=== PATIENT | female | born 1985 | race Caucasian/White ===

== ENCOUNTER 2020-11-08 08:06 | Inpatient (IN) ==
[2020-11-08] MEDS ORDERED: PENICILLIN G POTASSIUM 3 MU in DEXTROSE 5% 100 ML IV PRN (11:00)
[2020-11-08] MEDS ORDERED: LACTATED RINGER'S 1,000 ML IV PRN (11:00)
[2020-11-08] MEDS ORDERED: PENICILLIN G POTASSIUM 6 MU in DEXTROSE 5% 250 ML IV ONE (11:15)
[2020-11-08 11:38] LABS: Mean Corpuscular Hgb Conc 34.5 g/dL (32-36)
[2020-11-08 11:54] LABS: Hematocrit (blood only) 38.5 % (37-47); Hemoglobin 13.3 g/dL (12.0-16.0); Mean Corpuscular Hemoglobin 31.6 pg (25-34); Mean Corpuscular Volume 91.4 fL (80-100); RDW Coefficient of Variation 13.3 % (11.5-14.5); RDW Standard Deviation 43.9 fL (36.4-46.3); Red Blood Count 4.21 M/uL (4.2-5.4); White Blood Count 10.22 K/uL (4.8-10.8)
[2020-11-08 11:59] LABS: Platelet Count 48 K/uL (130-400)
[2020-11-08] MEDS ORDERED: OXYTOCIN 30 UNITS/500 ML BAG IV PRN ×2 (12:45→19:44)
--- NOTE | 2020-11-08 13:24 | History & Physical Report ---
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 Fetus demonstrating category I tracing. 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 Intrapartum analgesia IV p.r.n. * Gestational thrombocytopenia noted. Now s/p IVIG x 2 last week at direction of hematology. Platelets at 48 upon this admission, c/w last few readings over past 1.5 months. Arrange platelets on-call p.r.n. Will monitor during admission given that patient is at higher bleeding risk. (2) Gestational diabetes mellitus (GDM) affecting : (3) Encounter for induction of labor: Admission and Anticipated Discharge Date Admission Date: November 08, 2020 History of Present Illness Primary Care Provider: [facility] Arti is a 35 y/o female currently at 39-2/7 WGA with an JONO 11/13/20 as determined by LMP who is here for IOL in setting of GDMA1. Her was complicated by gestational thrombocytopenia (followed by hematology), GDMA1, and GBS positive carrier status. Upon presentation, she denied contractions; endorsed good movement; denied fluid loss; and denied bloody show. Had regular appointments with OB, alongside Hematology (Dr. Serrano). She received 2x IVIG treatments at [facility] for management of her thrombocytopenia. Of note, she did experience this during a previous as well and was unresponsive to prednisone 100mg daily x 10 days. Labs: (Date 04/08/20) Blood type: AB+ Antibody screen: negative H.3 (today) Hct: 38.5 (today) WBC: 10.2 (today) Plt: 48 (today) -- of note, since end of 08/2020, has been ranging between 40-60 range Rubella: negative VDRL/RPR: negative Gonorrhea: negative Chlamydia: negative HIV: negative HbSAg: negative GBS: positive Other screens: cff-DNA / CF / SMA: Declined during course. Allergies Allergy/AdvReac Type Severity Reaction Status Date / Time No Known Allergies Allergy Verified 11/01/20 12:34 Home Medications Medication Instructions Recorded Confirmed Type prenat.vits,isac,tjk-qqed-lkony 1 tab PO DAILY 03/31/20 11/08/20 History acetone (urine) test #50 ea 09/06/20 11/08/20 Rx blood sugar diagnostic #150 ea 09/06/20 11/08/20 Rx blood-glucose meter #1 ea 09/06/20 11/08/20 Rx lancets 33 gauge #150 ea 09/06/20 11/08/20 Rx Patient History Medical History Chicken pox Gestational diabetes mellitus (GDM) affecting Gestational thrombocytopenia Surgical History History of knee surgery Social History Smoking Status: Never smoker Hx Alcohol Use: No Hx Substance Use: No Preferred Language: Chilean Communication Ability: Effective Demolitionist Required: No Beliefs That Will Affect Care: None marital status: marital status details: Carroll (33) [phone] Current Living Situation: Spouse Current Living Situation Comment: Lives with spouse, daughter, no pets. current occupational status: unemployed current occupation: Homemmaker. Other Information That Helps Us Care for You: No Feels Safe at Home: Yes Safety Concerns: Feels Safe At This Time Assistive Devices: Contacts and Glasses Review of Systems no fever, no chills and no sweats denies headache no dyspnea no chest pain, no dyspnea, no dyspnea at rest and no palpitations no dysuria no breast pain Physical Exam Physical Exam: General: Alert, oriented. No acute distress. Cardiac: Regular rate and rhythm, no murmurs/rubs/gallops. Respiratory: Clear to auscultation bilaterally a/p, no wheezes/rales/rhonchi. No increased work of breathing. Symmetrical chest rise. No respiratory distress. Pelvic: Dilation 3 cm; Effacement 50 ; Station -[address] Harper Lower Extremities: No lower extremity edema or swelling. No deep calf pain. Bryson's negative bilaterally Results & Data ([facility]) Vital Signs (Past 12 Hours) Vital Signs Temp Pulse Resp BP 11/08/20 13:01 74 118/75 11/08/20 11:07 36.7 C 93 H 18 125/85 11/08/20 10:59 93 H 125/85 Code Status & VTE Plan VTE Prophylaxis Plan VTE Prophylaxis will be ordered: No Monitoring External Monitor Baseline: 135 Variability: 6-25 / moderate Accelerations: 15x15 Decelerations: none Tocodynamometer Quality: mild irregular Frequency: q4-7m Resident Activity Tracking Resident Involvement: Resident Care Provided Care Provided: Adult Hospital Medicine and OB Delivery
--- NOTE | 2020-11-08 13:31 | Obstetrical Progress Note ---
Date of Service Reviewed things in depth and her plan for induction she is 39 weeks and we had discussed as a group inducing the patient approximately 39 weeks her cervix is c hecked and she is 3 cm and 50% a paced V head is palpated in vertex position. Her platelet count is 48 this morning it was 50+ yesterday it was 39 late last week she did receive IVIG and has had some improvement. Patient delivered well vaginally without problem with a low platelet count she feels that was likely in the 50:70 ratio during her previous delivery. I spoke with blood bank specifically [facility] he stated that this time that they did use the platelets but more were coming and I asked for an emergency call for platelets and he would contact the [place] he will let us know what is going on. It sounds like platelets will be available in a few hours regardless and I am anticipating not needing them this would be in the case of hemorrhage or section these issues were discussed with the patient November 08, 2020 Assessment & Plan Admission and Anticipated Discharge Date Admission Date: November 08, 2020 Results & Data ([facility]) Vital Signs (Past 12 Hours) Vital Signs Temp Pulse Resp BP 11/08/20 13:01 74 118/75 11/08/20 11:07 98.1 F 93 H 18 125/85 11/08/20 10:59 93 H 125/85 PG Care Time/CCT Total # of Minutes Spent Total Time Spent with Patient: Total time spent is greater than 50% in coordination of care (as documented) at patient's floor/unit and/or counseling patient: Coding Level of Care Code None
--- NOTE | 2020-11-08 17:16 | Labor Progress Brief Note ---
Date of Service November 08, 2020 Patient now 4 cm excepts artificial rupture of membrane this was performed and clear fluid Assessment & Plan Admission and Anticipated Discharge Date Admission Date: November 08, 2020 Results & Data ([facility]) Vital Signs (Past 12 Hours) Vital Signs Temp Pulse Resp BP 11/08/20 16:32 83 18 144/83 H 11/08/20 16:30 78 164/94 H 11/08/20 15:11 68 18 125/74 11/08/20 14:57 97.9 F 64 18 151/93 H 11/08/20 14:08 77 18 130/80 11/08/20 13:01 74 118/75 11/08/20 11:07 98.1 F 93 H 18 125/85 11/08/20 10:59 93 H 125/85 Coding Level of Care Code None
--- NOTE | 2020-11-08 19:21 | Delivery Summary ---
Vaginal Delivery Summary Date of Service November 08, 2020 Patient was induced at 39 weeks and 0 days. Was her second daily she is known to have low platelet count throughout the and whether this is gestational or immune related is uncertain Pitocin was started IV group B strep antibiotics were started patient cannot have an epidural with her platelet count of 48 artificial rupture membranes was performed at approximately 4:30 PM and then she at around 715% fully dilated pushed over 1 contraction occiput anterior position no nuchal cord no meconium gentle traction live vigorous female infant cord clamped after pulsations stopped at maternal request cord blood obtained. Placenta removed with gentle traction IV Pitocin started there was no tearing estimated blood loss 150 mL sponge and instrument counts correct Vaginal Delivery Summary [facility] Vaginal Delivery Charge Delivery Type Details:
[2020-11-08] MEDS ORDERED: bisacodyL 10 MG SUPP PR PRN (19:44)
[2020-11-08] MEDS ORDERED: HYDROCORTISONE ACETATE 25 MG SUPP PR PRN (19:44)
[2020-11-08] MEDS ORDERED: oxyCODONE/ACETAMINOPHEN 5mg/325mg TAB PO PRN (19:44)
[2020-11-08] MEDS ORDERED: SUPERCREAM 0.870% 15 GM JAR EXT PRN (19:44)
[2020-11-08] MEDS ORDERED: BENZOCAINE 20% AER SPR 82.5 GM CAN EXT PRN (19:44)
[2020-11-08] MEDS ORDERED: DIPHTHERIA/TETANUS/PERTUSSIS 0.5 ML SYR/VIAL IM ONE (19:44)
[2020-11-08] MEDS: IBUPROFEN 600 MG TAB PO PRN (20:12)
[2020-11-09] MEDS: ACETAMINOPHEN 325 MG TAB PO PRN ×3 (00:13→19:54)
[2020-11-09] MEDS: DOCUSATE SODIUM 100 MG CAP PO SCH ×3 (00:58→20:55)
--- NOTE | 2020-11-09 06:30 | Obstetrical Progress Note ---
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 - In setting of gestational thrombocytopenia -- EBL ~150cc. VSS overnight. Plt 27 this AM. Will consult hematology to aid with management - Dr. Serrano. Patient required IVIG after last delivery. No concern for hemorrhage at present. Will monitor. - Feels well today. Eating well, voiding well, ambulating well. - Pain well controlled with ibuprofen 600mg Q4H PRN. - Routine PPD care -- OOB, ambulation as tolerated - After discharge will have [address] Harper (2) Gestational diabetes mellitus (GDM) affecting : (3) Encounter for induction of labor: Subjective <Dallas Estrada MD - Last Filed: 11/09/20 07:36> Arti is a 35 y/o female who is now PPD #1 following IOL with subsequent at 39 weeks. Reports feeling well overall this morning. Endorses mild abdominal cramping and pain well managed on analgesics. Voiding without difficulty. Tolerating meals well and able to ambulate some. Endorses passing gas. Some persistent lochia with some improvement this morning. Breast feeding. Review of Systems Denies fever, chills, sweats Denies shortness of breath, difficulty breathing, chest pain, palpitations, chest pressure. Denies breast pain. Denies dysuria. Denies headache or changes in vision. Physical Exam <Dallas Estrada MD - Last Filed: 11/09/20 07:36> General: Alert, oriented. No acute distress. Cardiac: Regular rate and rhythm, no murmurs/rubs/gallops. Respiratory: Clear to auscultation bilaterally a/p, no wheezes/rales/rhonchi. No increased work of breathing. Symmetrical chest rise. No respiratory distress. Abdomen: Soft, nontender, nondistended. Bowel sounds present. Uterus: Uterine fundus firm, palpable 1-2 cm below umbilicus. Lower Extremities: No lower extremity edema or swelling. No deep calf pain. Bryson's negative bilaterally. Results & Data ([facility]) <Dallas Estrada MD - Last Filed: 11/09/20 07:36> Vital Signs (Past 12 Hours) Vital Signs Temp Pulse Pulse Resp BP BP Pulse Ox 11/09/20 03:30 36.6 C 56 L 16 112/71 97 11/08/20 23:15 36.5 C 69 17 113/65 96 11/08/20 21:30 37.0 C 76 18 118/77 11/08/20 21:24 36.6 C 73 18 133/70 11/08/20 21:12 72 134/76 11/08/20 20:55 74 18 151/82 H 11/08/20 20:35 73 142/87 H 11/08/20 20:20 77 18 141/90 H 11/08/20 20:05 66 16 138/87 11/08/20 19:50 68 18 146/84 H 11/08/20 19:35 70 18 138/104 H 11/08/20 19:21 71 179/87 H 11/08/20 19:20 36.5 C 72 18 182/89 H 11/08/20 18:43 60 150/86 H <Zoe Harper MD, FACOG - Last Filed: 11/09/20 07:37> Co-Signing Physician Notes Resident Physician Supervision Note: I was present with Dr. Estrada during the history and exam. I discussed the case with the resident and agree with the findings and plan as documented in the note. Any exceptions or clarifications are listed here: Heme consult for possible IVIG Documented By: Zoe Harper MD, FACOG Resident Activity Tracking <Dallas Estrada MD - Last Filed: 11/09/20 07:36> Resident Involvement: Resident Care Provided Care Provided: Adult Hospital Medicine and OB Delivery
[2020-11-09 07:11] LABS: Hematocrit (blood only) 36.1 % (37-47); Hemoglobin 12.3 g/dL (12.0-16.0); Mean Corpuscular Hemoglobin 30.8 pg (25-34); Mean Corpuscular Hgb Conc 34.1 g/dL (32-36); Mean Corpuscular Volume 90.5 fL (80-100); Platelet Count 27 K/uL (130-400); Platelet Estimate Decreased (Normal); RDW Standard Deviation 43.2 fL (36.4-46.3); Red Blood Count 3.99 M/uL (4.2-5.4); White Blood Count 12.57 K/uL (4.8-10.8)
[2020-11-09] MEDS: PRENATAL VITAMIN 1 TAB PO SCH (07:12)
[2020-11-09] MEDS: IBUPROFEN 600 MG TAB PO PRN ×2 (07:12→15:32)
--- NOTE | 2020-11-09 14:22 | Consultation Report ---
HEMATOLOGY CONSULTATION DATE OF CONSULTATION: 11/09/2020 REASON FOR CONSULT: Thrombocytopenia, gestational versus immune. HISTORY OF PRESENT ILLNESS: Arti is a pleasant 35-year-old female who was admitted on for induction. Her was complicated by gestational thrombocytopenia versus ITP, fol lowed by myself. Arti recently received 2 doses of IVIG leading up to induction therapy. Her plate let count had been steadily falling, 37,000 near the time of induction. Thus, the rationale to admin ister IVIG. She had undergone a prior with the same outcome and was successfully given JESSICA G. I was contacted today because her platelet count has fallen to 27,000. No external evidence of p rolonged bleeding, and thus, we will plan to hold off and continue monitoring her counts closely over the next 24 hours or so. PAST MEDICAL HISTORY: Significant for gestational diabetes mellitus and gestational thrombocytopenia . PAST SURGICAL HISTORY: Status post knee surgery. MEDICATIONS PRIOR TO ADMISSION: vitamins 1 tablet p.o. daily. ALLERGIES: No known drug allergies. SOCIAL HISTORY: The patient lives with her spouse. She is currently a homemaker. She is a nonsmoke r, nondrinker, nonillicit drug user. REVIEW OF SYSTEMS: All systems are negative unless otherwise outlined in the HPI. PHYSICAL EXAMINATION: Deferred as the patient was . LABORATORY DATA: WBC count 12,570, hemoglobin 12.3, platelet count 27,000. IMPRESSION: 1. Gestational versus immune thrombocytopenia. 2. Status post induction of vaginal delivery. PLAN: I have been asked to visit with Arti up on the OB [place]. She successfully delivered a healthy yesterday. I had been following Arti throughout her as her platelet count had dri fted slowly downward. About a week prior to scheduled induction day, her platelet count was about 37 ,000. I was not really enthusiastic to give IVIG; however, Dr. Lorenzo preferred to go ahead and proc eed with it. It did cause a slight bump in her platelets leading up to delivery around 48,000. Now post-delivery day #1, her platelet count has fallen to 27,000. That said, options moving forward are observation versus high-dose dexamethasone 40 mg p.o. daily for 4 days. The patient apparently had high-dose prednisone in the past, which was unsuccessful. Perhaps she could receive another dose of IVIG 1 gram/kg prior to discharge with close hematologic followup. Other alternative measures includ e oral thrombopoietin or perhaps rituximab. If her platelet count falls below 20,000, would consider intervention prior to discharge. We will ensure Arti has close hematologic followup upon discharge . Nothing further to add at this time. Thank you very much for allowing me to participate in her care. Job ID: [id number]
[2020-11-09 19:48] LABS: Hematocrit (blood only) 35.7 % (37-47); Mean Corpuscular Hemoglobin 30.7 pg (25-34); Mean Corpuscular Hgb Conc 33.6 g/dL (32-36); Mean Corpuscular Volume 91.3 fL (80-100); Platelet Count 23 K/uL (130-400); RDW Coefficient of Variation 13.3 % (11.5-14.5); RDW Standard Deviation 44.4 fL (36.4-46.3); Red Blood Count 3.91 M/uL (4.2-5.4); White Blood Count 12.36 K/uL (4.8-10.8)
[2020-11-09 19:51] LABS: Basophils # (auto) 0.01 K/uL (0-0.2); Basophils % (auto) 0.1 %; Eosinophils # (auto) 0.11 K/uL (0-0.5); Eosinophils % (auto) 0.9 %; Immature Granulocytes # (auto) 0.04 K/uL (0.00-0.02); Immature Granulocytes % (auto) 0.3 %; Lymphocytes # (auto) 2.76 K/uL (1.2-3.4); Lymphocytes % (auto) 22.3 %; Monocytes # (auto) 1.23 K/uL (0.11-0.59); Neutrophils # (auto) 8.21 K/uL (1.4-6.5); Neutrophils % (auto) 66.4 %; Platelet Estimate SIGNIFIC DECREASED (Normal)
[2020-11-09] MEDS ORDERED: bisacodyL 5 MG TABEC PO SCH (20:00)
[2020-11-10] MEDS: ACETAMINOPHEN 325 MG TAB PO PRN ×2 (03:32→10:41)
--- NOTE | 2020-11-10 05:45 | Obstetrical Progress Note ---
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 s/p Spontaneous Vaginal Delivery - Feels well today. Eating well, voiding well, ambulating well. - Pain well controlled with ibuprofen 600mg Q4H PRN. - Routine PPD care -- OOB, ambulation as tolerated - After discharge will have [address] Harper Gestational Thrombocytopenia -- with history of such in prior , too - Admission platelets: 47k --> PPD#1 AM: 27k --> PPD#2 PM (1900hr): 23k - Hemodynamically stable.No PPD hemorrhage immediately . No significant bleeding. - BPs stable. No h/o PIH throughout . - s/p IVIG x 2 last week (10/2020) -- also required IVIG following prior delivery AND, per patient's report, high dose steroids - Seen by Dr. Serrano, Hematology, yesterday. Recommending intervention should platelets < 20k -- IVIG > steroids, oral thrombopoetin, rituximab - CBC this AM - Will require hematology f/u after discharge (2) Gestational diabetes mellitus (GDM) affecting : (3) Encounter for induction of labor: Subjective <Dallas Estrada MD - Last Filed: 11/10/20 06:34> Atri is a 35 y/o female who is now PPD #2 following IOL with subsequent at 39 weeks. Her has been notable for gestational thrombocytopenia and gDMA1. Reports feeling well overall this morning. Endorses mild abdominal cramping and pain well managed on analgesics. Voiding without difficulty. Tolerating meals well and able to ambulate some. Endorses passing gas. Mild persistent lochia without significant bleeding -- has gradually slowed down day-to-day. Breast feeding. She was seen by Dr. Serrano yesterday in consultation, who recommended intervention for platelets < 20k. Her repeat Plt check last night was 23k (from 27k yesterday AM, and 47k on admission the day prior). She is s/p IVIG x 2 last week. Physical Exam <Dallas Estrada MD - Last Filed: 11/10/20 06:34> General: Alert, oriented. No acute distress. Cardiac: Regular rate and rhythm, no murmurs/rubs/gallops. Respiratory: Clear to auscultation bilaterally a/p, no wheezes/rales/rhonchi. No increased work of breathing. Symmetrical chest rise. No respiratory distress. Abdomen: Soft, nontender, nondistended. Bowel sounds present. Uterus: Uterine fundus firm, palpable 1-2 cm below umbilicus. Lower Extremities: No lower extremity edema or swelling. No deep calf pain. Bryson's negative bilaterally. Results & Data ([facility]) <Dallas Estrada MD - Last Filed: 11/10/20 06:34> Vital Signs (Past 12 Hours) Vital Signs Temp Pulse Resp BP 11/10/20 03:36 36.7 C 66 16 136/88 11/10/20 00:38 36.4 C L 68 18 118/74 11/09/20 19:45 36.6 C 60 16 120/81 <Aline Osborne MD - Last Filed: 11/10/20 09:27> Co-Signing Physician Notes Resident Physician Supervision Note: I interviewed and examined the patient. Discussed with Dr. Estrada and agree with findings and plan as documented in the note. Any exceptions or clarifications are listed here: PPD2 s/p . Meeting all milestones from OB standpoint. Per Dr. Serrano, he recommended dexamethasone 40mg daily x 4d and CBC q48hrs due to platelets now at 20 and pt is amenable. Will send rx for dexamethasone and ask his office to establish the labs. Stable for d/c home today Documented By: Aline Osborne MD Resident Activity Tracking <Dallas Estrada MD - Last Filed: 11/10/20 06:34> Resident Involvement: Resident Care Provided Care Provided: [facility]
[2020-11-10 07:26] LABS: Hematocrit (blood only) 35.9 % (37-47); Hemoglobin 12.3 g/dL (12.0-16.0); Mean Corpuscular Hemoglobin 31.5 pg (25-34); Mean Corpuscular Hgb Conc 34.3 g/dL (32-36); Mean Corpuscular Volume 92.1 fL (80-100); Platelet Count 20 K/uL (130-400); RDW Coefficient of Variation 13.4 % (11.5-14.5); RDW Standard Deviation 44.9 fL (36.4-46.3); White Blood Count 11.78 K/uL (4.8-10.8)
[2020-11-10 07:27] LABS: Basophils # (auto) 0.03 K/uL (0-0.2); Basophils % (auto) 0.3 %; Eosinophils # (auto) 0.13 K/uL (0-0.5); Eosinophils % (auto) 1.1 %; Immature Granulocytes # (auto) 0.04 K/uL (0.00-0.02); Immature Granulocytes % (auto) 0.3 %; Lymphocytes % (auto) 20.4 %; Monocytes # (auto) 1.05 K/uL (0.11-0.59); Monocytes % (auto) 8.9 %; Neutrophils # (auto) 8.13 K/uL (1.4-6.5); Platelet Estimate SIGNIFIC DECREASED (Normal); RBC Morphology Unremarkable
[2020-11-10] MEDS: PRENATAL VITAMIN 1 TAB PO SCH (08:01)
[2020-11-10] MEDS: DOCUSATE SODIUM 100 MG CAP PO SCH (08:01)
--- NOTE | 2020-11-10 08:50 | Progress Notes ---
DATE OF SERVICE: 11/10/2020. DIAGNOSES: 1. Gestational versus immune thrombocytopenia. 2. Status post induction vaginal delivery. SUBJECTIVE: The patient was seen and examined at bedside. Advised her yesterday, would like to start oral dexamethasone if her platelet count continued to fall. We looked at her count from last night, it was 23,000 and when I went to bedside, she decided she wanted to wait for this morning's counts, which are now available, platelets measuring 20,000. No external evidence of bleeding, patient feels well otherwise. The patient herself wants some more IVIG and explained to her the goal should be prolonged remission and thus not in favor of reinstituting IVIG moving forward. OBJECTIVE: GENERAL: This is a 35-year-old female in no acute distress. accompanied her at bedside. VITAL SIGNS: Temperature 36.7, pulse 66, respiratory rate 16, blood pressure 136/88. SKIN: No visible ecchymoses or petechiae. HEART: Regular rate and rhythm. LUNGS: Clear to auscultation bilaterally. LABORATORY DATA: WBC count 11,780, hemoglobin 12.3, platelet count 20,000. IMPRESSION: 1. Gestational versus immune thrombocytopenia. 2. Day one post-induction vaginal delivery. PLAN: Engaged in discussion with patient regarding her current platelet count. She and her do not appear to be interested in oral dexamethasone. I am not necessarily enthusiastic to administer further IVIG as this measure will only temporarily bolster her numbers and at some point needs definitive therapy if indeed her platelets are being destroyed via autoimmunity. Rituximab perhaps as an option versus oral thrombopoietin moving forward once the patient is discharged. I agree with having her discharged with followup counts at least every other day with office followup within the next 1 to 2 weeks. Nonetheless, we will officially sign off today and make preparations to see her in the office very soon. Job ID: [id number] [facility]
[2020-11-10 14:03] LABS: Hematocrit (blood only) 36.8 % (37-47); Hemoglobin 12.6 g/dL (12.0-16.0); Mean Corpuscular Hemoglobin 31.5 pg (25-34); Mean Corpuscular Hgb Conc 34.2 g/dL (32-36); Platelet Count 24 K/uL (130-400); RDW Coefficient of Variation 13.4 % (11.5-14.5); RDW Standard Deviation 45.5 fL (36.4-46.3); White Blood Count 12.27 K/uL (4.8-10.8)
[2020-11-10 14:05] LABS: Basophils # (auto) 0.01 K/uL (0-0.2); Basophils % (auto) 0.1 %; Eosinophils # (auto) 0.13 K/uL (0-0.5); Eosinophils % (auto) 1.1 %; Giant Platelets 1+; Immature Granulocytes # (auto) 0.04 K/uL (0.00-0.02); Immature Granulocytes % (auto) 0.3 %; Lymphocytes # (auto) 2.27 K/uL (1.2-3.4); Lymphocytes % (auto) 18.5 %; Monocytes # (auto) 0.69 K/uL (0.11-0.59); Monocytes % (auto) 5.6 %; Neutrophils # (auto) 9.13 K/uL (1.4-6.5); Neutrophils % (auto) 74.4 %; Platelet Estimate Decreased (Normal)
== END 2020-11-10 15:10 | disposition home or self-care (01) | DRG 807 ==
LOC: 4S1 10:51 → 4S2 21:56